=== PATIENT | male | born 1995 | race Caucasian/White ===

== ENCOUNTER 2017-05-29 14:34 | Emergency (ER) | payer SELFPAY ==
[2017-05-29 15:11] LABS: PTT 27.1 SEC (22.9-36.1); Prothrombin Time 13.5 SEC (12.0-14.7)
[2017-05-29 15:18] LABS: Hemoglobin 16.2 g/dL (14.0-18.0); Lymphocytes 34 % (21-51); MDiff Complete? YES; Mean Corpuscular HGB CONC 32.2 g/dL (32.0-36.0); Mean Corpuscular Hemoglobin 28.9 pg (27.0-31.0); Mean Corpuscular Volume 89.7 fl (80.0-94.0); Mean Platelet Volume 6.1 fL (7.4-10.4); Monocytes 9 % (0-10); Neutrophil 56 % (42-75); Platelet Count 343 thou/uL (130-400); RBC Distribution Width 12.5 % (11.5-14.5); Reactive Lymphocytes 1 % (0-10); Red Blood Cell (RBC) Count 5.63 mill/uL (4.70-6.10); White Blood Cell (WBC) Count 7.3 thou/uL (4.8-10.8)
[2017-05-29 15:19] LABS: D-Dimer Test Less than 0.27 *mcg/mL (0.27-0.43)
[2017-05-29 15:20] LABS: ALT (SGPT) 218 U/L (8-55); AST (SGOT) 117 U/L (5-34); Alkaline Phosphatase 98 U/L (40-150); Anion Gap 17 mmol/L (10-20); BUN (Urea Nitrogen) 16 mg/dL (8.9-20.6); Bilirubin, Total 0.6 mg/dL (0.2-1.2); Calc. Creatinine Clearance 0 mL/min (70-130); Calcium 10.7 mg/dL (7.8-10.44); Carbon Dioxide 25 mmol/L (22-29); Chloride 104 mmol/L (98-107); Estimated GFR-MDRD Greater than 90; Globulin 4.3 g/dL (2.4-3.5); Glucose 81 mg/dL (70-105); Potassium 3.7 mmol/L (3.5-5.1); Protein, Total 9.3 g/dL (6.0-8.3); Sodium 142 mmol/L (136-145)
--- NOTE | 2017-05-29 19:41 | RAD ---
CHEST TWO VIEWS: Date: 05-29-17 Comparison: None. FINDINGS: The heart is normal in size and the lungs are clear. No infiltrate, effusion, or nodule was seen. Th e lungs are fully inflated. The mediastinum is unremarkable. The trachea is midline. The bony struct ures appear normal. IMPRESSION: No acute thoracic finding. POS: HOME
== END 2017-05-29 15:45 | disposition home or self-care (01) ==
LOC: BURERS 14:34
DX: R04.2 Hemoptysis (principal); J06.9 Acute upper respiratory infection, unspecified; B19.20 Unspecified viral hepatitis C without hepatic coma; F31.9 Bipolar disorder, unspecified; F41.9 Anxiety disorder, unspecified; F17.210 Nicotine dependence, cigarettes, uncomplicated
CPT/HCPCS: 71020; 80053; 85025; 85379; 85610; 85730

== ENCOUNTER 2017-12-26 13:07 | Emergency (ER) | payer SELFPAY ==
[2017-12-26 13:37] LABS: #Lymphocytes 1.1 thou/uL (1.20-3.40); #Monocytes 0.2 thou/uL (0.11-0.59); #Neutrophils 5.3 thou/uL (1.40-6.50); %Basophils 0.7 % (0.0-1.0); %Lymphocytes 16.6 % (21.0-51.0); %Monocytes 2.5 % (0.0-10.0); %Neutrophils 80.3 % (42.0-75.0); Hemoglobin 16.1 g/dL (14.0-18.0); Mean Corpuscular HGB CONC 34.7 g/dL (32.0-36.0); Mean Corpuscular Hemoglobin 28.9 pg (27.0-31.0); Mean Corpuscular Volume 83.3 fl (80.0-94.0); Platelet Count 303 thou/uL (130-400); Red Blood Cell (RBC) Count 5.56 mill/uL (4.70-6.10); White Blood Cell (WBC) Count 6.6 thou/uL (4.8-10.8)
[2017-12-26] MEDS ORDERED: Famotidine In NaCl 20 mg/50 ml Premix Bag ONE (13:46)
[2017-12-26] MEDS ORDERED: Ondansetron HCl/PF 4 MG/2 ML Vial ONE (13:46)
[2017-12-26 13:53] LABS: INR-International Normal Ratio 1.1; PTT 24.7 SEC (22.9-36.1); Prothrombin Time 14.2 SEC (12.0-14.7)
[2017-12-26 13:55] LABS: ALT (SGPT) 140 U/L (8-55); AST (SGOT) 67 U/L (5-34); Albumin 4.8 g/dL (3.5-5.0); Alkaline Phosphatase 87 U/L (40-150); Anion Gap 22 mmol/L (10-20); BUN (Urea Nitrogen) 17 mg/dL (8.9-20.6); Bilirubin, Total 0.3 mg/dL (0.2-1.2); Calc. Creatinine Clearance 0 mL/min (70-130); Calcium 9.9 mg/dL (7.8-10.44); Carbon Dioxide 22 mmol/L (22-29); Chloride 102 mmol/L (98-107); Estimated GFR-MDRD 61; Globulin 3.6 g/dL (2.4-3.5); Glucose 113 mg/dL (70-105); Potassium 4.8 mmol/L (3.5-5.1); Protein, Total 8.4 g/dL (6.0-8.3); Sodium 141 mmol/L (136-145)
[2017-12-26 13:56] LABS: Alcohol Less than 10 mg/dL (Less than 10); Salicylate Less than 8.0 mg/dL (15.0-30.0)
[2017-12-26 14:12] LABS: Clarity Cloudy (Clear); Glucose, Urine (Dipstick) Negative (Negative); Leukocyte Negative (Negative); Nitrite Negative (Negative); Protein, Urine (Dipstick) 100 mg/dL (Neg-Trace); Specific Gravity, Urine 1.025 (1.005-1.030)
[2017-12-26 14:13] LABS: Bacteria/HPF 2+ HPF (None Seen); Bilirubin Negative (Negative); Blood, Urine Small (Negative); Crystals/HPF None Seen HPF (Negative); Hyaline Casts/LPF NONE SEEN LPF (0-3 Hyaline); Other Casts/LPF None Seen LPF (0-3 Hyaline); Oval Fat Bodies/HPF None Seen HPF (None Seen); Renal Epithelial None Seen HPF (0-3); Sperm/HPF None Seen HPF (None Seen); Squamous Epithelial 0-3 HPF (0-3); Transitional Epithelial NONE SEEN HPF (0-3); Trichomonas/HPF None Seen HPF (None Seen); Urobilinogen 0.2 mg/dL (0.2-1.0); Yeast-All Forms None Seen HPF (None Seen)
[2017-12-26 14:14] LABS: Amphetamine Not Detected (NotDetected); Barbiturates Screen Not Detected (NotDetected); Benzodiazepine Screen Not Detected (NotDetected); Cocaine Metabolite Screen Not Detected (NotDetected); Medtox Control Line Valid? VALID (VALID); Methadone Not Detected (NotDetected); Methamphetamine Not Detected (NotDetected); Opiate Screen Not Detected (NotDetected); Oxycodone Screen Not Detected (NotDetected); Phencyclidine (PCP) Not Detected (NotDetected); THC/Cannabinoid Screen Not Detected (NotDetected); Tricyclic Screen Not Detected (NotDetected)
[2017-12-26] MEDS ORDERED: Acetylcysteine 20% 200 MG/ML 30 ML VIAL ONE (14:18)
[2017-12-26] MEDS ORDERED: cefTRIAXone\\ROCEPHIN 1 GM VIAL ONE (14:31)
[2017-12-26] MEDS ORDERED: Sodium Chloride 0.9% 100 ML ONE (14:32)
== END 2017-12-26 14:41 | disposition short-term general hospital (02) ==
LOC: BURERS 13:07
DX: T39.1X2A Poisoning by 4-Aminophenol derivatives, intentional self-harm, initial encounter (principal); F32.9 Major depressive disorder, single episode, unspecified; N39.0 Urinary tract infection, site not specified; F31.9 Bipolar disorder, unspecified; F41.9 Anxiety disorder, unspecified; F17.210 Nicotine dependence, cigarettes, uncomplicated
CPT/HCPCS: 36415; 80053; 80306; 80307; 81003; 81015; 84443; 85025; 85610; 85730; 93005; 94760; 96365; 96375; J0696; J2405; J7050; J7608

== ENCOUNTER 2018-01-31 13:52 | Emergency (ER) | payer SELFPAY ==
[2018-01-31] MEDS ORDERED: Lorazepam 2 MG/ML VIAL ONE ×2 (14:09→14:37)
[2018-01-31] MEDS ORDERED: Haloperidol Lactate 5 MG/ML VIAL ONE (14:09)
[2018-01-31 14:23] LABS: #Basophils 0.1 thou/uL (0.0-0.2); #Eosinphils 0.1 thou/uL (0.0-0.7); #Neutrophils 4.3 thou/uL (1.40-6.50); %Basophils 1.3 % (0.0-1.0); %Eosinophils 0.9 % (0.0-10.0); %Lymphocytes 35.1 % (21.0-51.0); %Neutrophils 50.7 % (42.0-75.0); Hemoglobin 15.5 g/dL (14.0-18.0); Mean Corpuscular HGB CONC 35.4 g/dL (32.0-36.0); Mean Corpuscular Hemoglobin 28.1 pg (27.0-31.0); Mean Corpuscular Volume 79.4 fL (78.0-98.0); Mean Platelet Volume 5.6 fL (7.4-10.4); Platelet Count 328 thou/uL (130-400); RBC Distribution Width 12.1 % (11.5-14.5); Red Blood Cell (RBC) Count 5.51 mill/uL (4.70-6.10); White Blood Cell (WBC) Count 8.4 thou/uL (4.8-10.8)
[2018-01-31] MEDS ORDERED: Magnesium Sulfate 2 GM/100 ML BAG ONE (14:30)
[2018-01-31 14:38] LABS: Amphetamine Detected (NotDetected); Benzodiazepine Screen Not Detected (NotDetected); Cocaine Metabolite Screen Not Detected (NotDetected); Methamphetamine Detected (NotDetected); Opiate Screen Not Detected (NotDetected); Phencyclidine (PCP) Not Detected (NotDetected); THC/Cannabinoid Screen Not Detected (NotDetected)
[2018-01-31 14:39] LABS: Barbiturates Screen Not Detected (NotDetected); Medtox Control Line Valid? VALID (VALID); Methadone Not Detected (NotDetected); Oxycodone Screen Not Detected (NotDetected); Tricyclic Screen Not Detected (NotDetected)
[2018-01-31 14:46] LABS: ALT (SGPT) 70 U/L (8-55); AST (SGOT) 66 U/L (5-34); Acetaminophen Less than 6.0 mcg/mL (10.0-30.0); Albumin 4.9 g/dL (3.5-5.0); Alcohol Less than 10 mg/dL (Less than 10); Alkaline Phosphatase 75 U/L (40-150); Anion Gap 16 mmol/L (10-20); BUN (Urea Nitrogen) 17 mg/dL (8.9-20.6); Bilirubin, Total 0.9 mg/dL (0.2-1.2); Calc. Creatinine Clearance 0 mL/min (70-130); Calcium 10.3 mg/dL (7.8-10.44); Carbon Dioxide 24 mmol/L (22-29); Chloride 103 mmol/L (98-107); Estimated GFR-MDRD 76; Globulin 3.6 g/dL (2.4-3.5); Glucose 91 mg/dL (70-105); Potassium 3.4 mmol/L (3.5-5.1); Protein, Total 8.5 g/dL (6.0-8.3); Salicylate Less than 8.0 mg/dL (15.0-30.0); Sodium 140 mmol/L (136-145)
[2018-01-31] MEDS ORDERED: PHYSOSTIGMINE 1 MG/ML ONE (14:56)
[2018-01-31] MEDS ORDERED: Atropine Sulfate 1 mg/10 ml Syringe ONE (14:56)
[2018-01-31 15:12] LABS: Bilirubin Small (Negative); Blood, Urine Trace (Negative); Clarity Clear (Clear); Glucose, Urine (Dipstick) Negative (Negative); Leukocyte Negative (Negative); Nitrite Negative (Negative); Protein, Urine (Dipstick) Negative (Neg-Trace); Urobilinogen 0.2 mg/dL (0.2-1.0)
[2018-01-31 15:13] LABS: Bacteria/HPF Rare-Few HPF (None Seen); RBC/HPF 0-3 HPF (0-3); Squamous Epithelial 0-3 HPF (0-3); Transitional Epithelial 0-3 HPF (0-3); WBC/HPF 0-3 HPF (0-3)
[2018-01-31 18:33] LABS: Acetaminophen Less than 6.0 mcg/mL (10.0-30.0); Alcohol Less than 10 mg/dL (Less than 10); Salicylate Less than 8.0 mg/dL (15.0-30.0)
[2018-01-31 18:40] LABS: CKMB 5.4 ng/mL (0-6.6); Troponin I Less than 0.010 ng/mL (< 0.028)
[2018-01-31] MEDS ORDERED: cefTRIAXone\\ROCEPHIN 1 GM VIAL ONE (19:07)
[2018-01-31] MEDS ORDERED: Midazolam HCl 2 mg/2 ml Vial ONE (19:22)
--- NOTE | 2018-01-31 21:04 | CT ---
CT OF THE BRAIN WITHOUT CONTRAST: 01/31/[address] was done for evaluation of mental status changes. The ventricles are normal in size with no shift. There is considerable motion artifact on the study which degrades the images. No gross signs of hemorrhage, mass or edema were found. The calvarium appears intact. The visible paranasal s inuses are clear. IMPRESSION: Mildly limited study. No acute findings. POS: HOME
[2018-01-31 21:22] LABS: Color Of CSF Supernatant COLORLESS (Colorless); Tube # 2; Unspun CSF Color COLORLESS (Colorless)
[2018-01-31 21:36] LABS: CSF Source CSF; Clarity Clear (Clear); RBC Count - Manual 0 /cumm (None Seen); Tube # 4
[2018-01-31 21:37] LABS: WBC/NonHematics Count - Manual 4 /cumm (0-5)
[2018-02-01 00:59] LABS: CSF, Glucose 60 mg/dl (40-70); CSF, Protein 40 mg/dL (15-40)
== END 2018-01-31 19:35 | disposition short-term general hospital (02) ==
LOC: BURERS 13:52
DX: G93.40 Encephalopathy, unspecified (principal); R41.0 Disorientation, unspecified; R50.9 Fever, unspecified; F41.9 Anxiety disorder, unspecified; F32.9 Major depressive disorder, single episode, unspecified; F17.210 Nicotine dependence, cigarettes, uncomplicated
CPT/HCPCS: 51701; 62270; 70450; 80053; 80306; 80307; 81003; 81015; 82550; 82553; 82945; 83605; 84157; 84484; 85025; 87070; 87205; 89051; 93005; 96361; 96365; 96375; J0461; J0696; J1630; J2060; J2250; J2997; J3370; J3475